=== PATIENT | female | born 1990 | race Caucasian/White ===

== ENCOUNTER 2022-05-23 02:36 | Emergency (ER) | payer MEDICARE, OTHER ==
[2022-05-23] MEDS ORDERED: Ondansetron 4 MG/2 ML SDV IVPUSH ONE (03:34)
[2022-05-23] MEDS ORDERED: HYDROmorphone 0.5 MG/0.5 ML Syringe IVPUSH ONE (03:34)
[2022-05-23] MEDS ORDERED: Sodium Chloride 0.9% 1,000 ML IV SCH (03:45)
[2022-05-23] MEDS ORDERED: Iopamidol 612 MG/ML 100 ML Bottle IVPUSH ONE (03:50)
[2022-05-23] MEDS ORDERED: Iopamidol 612 MG/ML 50 ML SDV IVPUSH ONE (03:50)
[2022-05-23] MEDS ORDERED: Sodium Chloride 0.9% 10 ML Syringe FLUSH ONE (03:50)
== END 2022-05-23 07:12 | disposition home or self-care (01) ==
LOC: JD.ED 02:36
DX: R10.31 Right lower quadrant pain (principal); R11.2 Nausea with vomiting, unspecified; R73.9 Hyperglycemia, unspecified; E78.00 Pure hypercholesterolemia, unspecified; E66.9 Obesity, unspecified; Z68.32 Body mass index [BMI] 32.0-32.9, adult
CPT/HCPCS: 36415; 74177; 80053; 81001; 83690; 83735; 85007; 85027; 96361; 96374; 96375; 99284; J1170; J2405; J3490; J7030; Q9967

== ENCOUNTER 2022-09-10 15:20 | Emergency (ER) | payer MEDICARE ==
[2022-09-10] MEDS ORDERED: Sodium Chloride 0.9% 10 ML Syringe FLUSH PRN (15:58)
[2022-09-10] MEDS ORDERED: Ondansetron 4 MG/2 ML SDV IVPUSH ONE (16:42)
[2022-09-10] MEDS ORDERED: HYDROmorphone 0.5 MG/0.5 ML Syringe IVPUSH ONE ×2 (16:42→18:27)
[2022-09-10] MEDS ORDERED: Iopamidol 612 MG/ML 100 ML Bottle IVPUSH ONE ×2 (17:49→17:51)
== END 2022-09-10 21:45 | disposition home or self-care (01) ==
LOC: JD.ED 15:20
DX: R10.31 Right lower quadrant pain (principal); E66.9 Obesity, unspecified; Z68.31 Body mass index [BMI] 31.0-31.9, adult
CPT/HCPCS: 36415; 74177; 76830; 80053; 81001; 84703; 85025; 86140; 96374; 96375; 96376; 99284; J1170; J2405; J3490; Q9967